=== PATIENT | female | born 1965 | race Caucasian/White ===

== ENCOUNTER → 2018-01-21 | Outpatient (CLI) | payer OTHER | LOC: FIMAGING 08:39 | PROVIDERS: ATTEND Obstetrics & Gynecology | DX: Z12.31 Encounter for screening mammogram for malignant neoplasm of breast (principal) ==

== ENCOUNTER 2018-11-30 09:01 | Inpatient (IN) | payer OTHER ==
[2018-11-30] MEDS ORDERED: NS 1,000 ML IV ONE ×2 (09:21→12:07)
[2018-11-30] MEDS ORDERED: ONDANSETRON 4 MG/2 ML VIAL IVP ONE (09:21)
[2018-11-30] MEDS ORDERED: fentaNYL 100 MCG/2 ML INJ IVP ONE (09:21)
--- NOTE | 2018-11-30 09:26 | EDPHY ---
H & P Time Seen by Provider: 11/30/18 09:15 HPI/ROS: CHIEF COMPLAINT: Abdominal pain HISTORY OF PRESENT ILLNESS: Patient started on Saturday with indigestion, she said she felt reasonably well and actually went skiing. That night she had nausea vomiting increasing pain in yesterday basically just lay around the house doing not much of anything with decreased oral intake. Today the pain is worse when she had a single episode of diarrhea. It is worse with standing. Not better with oral intake. Vomiting green bile. No fever or chills and no injury or trauma. REVIEW OF SYSTEMS: Eye: no change in vision ENT: no sore throat Cardiac: no chest pain or syncope Pulmonary: no cough or SOB Abdomen: HPI Musculoskeletal: no back pain Skin: no rash Neuro: no headache Constitutional: no fever : no urinary symptoms A comprehensive 10 point review of systems is otherwise negative aside from elements mentioned in the history of present illness. PAST MEDICAL HISTORY: Negative, no previous abdominal surgery Social history: Nonsmoker General Appearance: Alert and conversant, cooperative. Eyes: No scleral icterus. ENT, Mouth: Dry mucous membranes. Respiratory: Normal respiratory effort, breath sounds equal, lungs are clear to auscultation. Cardiovascular: Regular rate and rhythm. Gastrointestinal: Bilateral lower abdominal tenderness without rebound or guarding. Neurological: Alert, face symmetric, normal motor and sensory in extremities. Skin: Warm and dry, no rashes. Musculoskeletal: No peripheral edema. Psychiatric: Not agitated. Emergency Department course/MDM: Normal saline 1 L, Zofran 4 mg IV and fentanyl 50 mcg IV. Patient is postmenopausal, think ectopic or ovarian would be unlikely. Plan for i-STAT and then CT scanning to evaluate for diverticulitis or appendicitis or perforation. 1045: CT per Dr. Harp shows appendicitis with multiple appendicoliths, discussed with the patient and CT reviewed with her. Plan surgical consultation IV antibiotics and admission. Penicillin allergy per the patient was a rash when she was given penicillin in [place] at 5 years of age, but she has had ampicillin since without reaction. Smoking Status: Never smoked Constitutional: Initial Vital Signs Temperature (C) 37.2 C 11/30/18 09:04 Heart Rate 69 11/30/18 09:04 Respiratory Rate 16 11/30/18 09:04 Blood Pressure 115/71 11/30/18 09:04 O2 Sat (%) 99 11/30/18 09:04 O2 Delivery Mode Room Air Allergies/Adverse Reactions: Penicillins Allergy (Verified 11/30/18 09:04) Home Medications: Medication Instructions Recorded NK [No Known Home Meds] 11/30/18 Medical Decision Making - Diagnostics Imaging Results: Imaging Impressions Abdomen CT 11/30/18 10:05 Impression: CT findings for appendicitis with a markedly enlarged appendix and multiple appendicoliths. There is surrounding inflammatory change with the appendix contiguous with a small amount of free fluid in the pelvis, indicating it may have ruptured. No evidence for free intraperitoneal air. Results called and discussed with Shane Keene MD on November 30, 2018 at 10: 47 a.m. Imaging: Discussed imaging studies w/ call center analyst Radiologist Differential Diagnosis: Differential considered including but not limited to gastroenteritis, appendicitis, diverticulitis, bowel obstruction, ovarian problem. Consult/Admit Bed Type: [place] [id number] - Data Points Laboratory Results: Laboratory Results 11/30/18 09:31 11/30/18 09:31 11/30/18 11/30/18 11/30/18 10:15 10:02 09:41 WBC RBC Hgb POC Hgb 16.0 gm/dL gm/dL (12.6-16.3) Hct POC Hct 47 % % (38-47) MCV MCH MCHC RDW Plt Count MPV Neut % (Auto) Lymph % (Auto) [place] % (Auto) Eos % (Auto) Baso % (Auto) Nucleat RBC Rel Count Absolute Neuts (auto) Absolute Lymphs (auto) Absolute Monos (auto) Absolute Eos (auto) Absolute Basos (auto) Absolute Nucleated RBC Immature Gran % Immature Gran # POC Sodium 137 mEq/L mEq/L (135-145) Sodium POC Potassium 3.6 mEq/L mEq/L (3.3-5.0) Potassium POC Chloride 99 mEq/L mEq/L (97-110) Chloride Carbon Dioxide POC Total CO2 22 mEq/L mEq/L (22-31) Anion Gap POC BUN 20 mg/dL mg/dL (7-23) BUN Creatinine POC Creatinine 0.7 mg/dL mg/dL (0.6-1.0) Estimated GFR Glucose POC Glucose 122 mg/dL H mg/dL (70-100) Calcium Total Bilirubin Conjugated Bilirubin Unconjugated Bilirubin AST ALT Alkaline Phosphatase POC Troponin I 0.00 ng/mL ng/mL (0.00-0.08) Total Protein Albumin Lipase Beta HCG, Qual Urine Color YELLOW Urine Appearance HAZY Urine pH 5.0 (5.0-7.5) Ur Specific [place] 1.028 (1.002-1.030) Urine Protein 1+ H (NEGATIVE) Urine Ketones 2+ H (NEGATIVE) Urine Blood NEGATIVE (NEGATIVE) Urine Nitrate NEGATIVE (NEGATIVE) Urine Bilirubin NEGATIVE (NEGATIVE) Urine Urobilinogen NEGATIVE EU EU (0.2-1.0) Ur Leukocyte Esterase TRACE H (NEGATIVE) Urine RBC 1-3 /hpf /hpf (0-3) Urine WBC 5-10 /hpf H /hpf (0-3) Ur Epithelial Cells 1+ /lpf /lpf (NONE-1+) Urine Bacteria TRACE /hpf H /hpf (NONE SEEN) Urine Mucus 3+ /lpf H /lpf (NONE-1+) Urine Glucose NEGATIVE (NEGATIVE) 11/30/18 11/30/18 11/30/18 09:31 09:31 09:31 WBC 17.08 10^3/uL H 10^3/uL (3.80-9.50) RBC 4.66 10^6/uL 10^6/uL (4.18-5.33) Hgb 14.3 g/dL g/dL (12.6-16.3) POC Hgb Hct 42.0 % % (38.0-47.0) POC Hct MCV 90.1 fL fL (81.5-99.8) MCH 30.7 pg pg (27.9-34.1) MCHC 34.0 g/dL g/dL (32.4-36.7) RDW 12.1 % % (11.5-15.2) Plt Count 305 10^3/uL 10^3/uL (150-400) MPV 9.5 fL fL (8.7-11.7) Neut % (Auto) 88.5 % H % (39.3-74.2) Lymph % (Auto) 4.6 % L % (15.0-45.0) [place] % (Auto) 6.4 % % (4.5-13.0) Eos % (Auto) 0.0 % L % (0.6-7.6) Baso % (Auto) 0.1 % L % (0.3-1.7) Nucleat RBC Rel Count 0.0 % % (0.0-0.2) Absolute Neuts (auto) 15.12 10^3/uL H 10^3/uL (1.70-6.50) Absolute Lymphs (auto) 0.78 10^3/uL L 10^3/uL (1.00-3.00) Absolute Monos (auto) 1.09 10^3/uL H 10^3/uL (0.30-0.80) Absolute Eos (auto) 0.00 10^3/uL L 10^3/uL (0.03-0.40) Absolute Basos (auto) 0.02 10^3/uL 10^3/uL (0.02-0.10) Absolute Nucleated RBC 0.00 10^3/uL 10^3/uL (0-0.01) Immature Gran % 0.4 % % (0.0-1.1) Immature Gran # 0.07 10^3/uL 10^3/uL (0.00-0.10) POC Sodium Sodium 135 mEq/L mEq/L (135-145) POC Potassium Potassium 4.1 mEq/L mEq/L (3.5-5.2) POC Chloride Chloride 102 mEq/L mEq/L (97-110) Carbon Dioxide 24 mEq/l mEq/l (22-31) POC Total CO2 Anion Gap 9 mEq/L mEq/L (6-14) POC BUN BUN 20 mg/dL mg/dL (7-23) Creatinine 0.8 mg/dL mg/dL (0.6-1.0) POC Creatinine Estimated GFR > 60 Glucose 123 mg/dL H mg/dL (70-100) POC Glucose Calcium 9.9 mg/dL mg/dL (8.5-10.4) Total Bilirubin 2.0 mg/dL H mg/dL (0.1-1.4) Conjugated Bilirubin 0.2 mg/dL mg/dL (0.0-0.5) Unconjugated Bilirubin 1.8 mg/dL H mg/dL (0.0-1.1) AST 24 IU/L IU/L (14-46) ALT 26 IU/L IU/L (9-52) Alkaline Phosphatase 71 IU/L IU/L (38-126) POC Troponin I Total Protein 7.4 g/dL g/dL (6.3-8.2) Albumin 4.4 g/dL g/dL (3.5-5.0) Lipase 56 IU/L IU/L (23-300) Beta HCG, Qual NEGATIVE Urine Color Urine Appearance Urine pH Ur Specific [place] Urine Protein Urine Ketones Urine Blood Urine Nitrate Urine Bilirubin Urine Urobilinogen Ur Leukocyte Esterase Urine RBC Urine WBC Ur Epithelial Cells Urine Bacteria Urine Mucus Urine Glucose Medications Given: Discontinued Medications Fentanyl (Sublimaze) 50 mcg IVP EDNOW ONE Stop: 11/30/18 09:22 Last Admin: 11/30/18 09:44 Dose: 50 mcg Hydromorphone HCl (Dilaudid) 0.5 mg IVP EDNOW ONE Stop: 11/30/18 10:27 Last Admin: 11/30/18 10:36 Dose: 0.5 mg Hydromorphone HCl (Dilaudid) 0.5 mg IVP ONCE ONE Stop: 11/30/18 12:08 Last Admin: 11/30/18 12:14 Dose: 0.5 mg Sodium Chloride (Ns) 1,000 mls @ 0 mls/hr IV EDNOW ONE; Wide Open PRN Reason: Protocol Stop: 11/30/18 09:22 Last Admin: 11/30/18 09:40 Dose: 1,000 mls Ceftriaxone Sodium/Dextrose (Rocephin 1 Gm (Premix)) 50 mls @ 100 mls/hr IV EDNOW ONE PRN Reason: Protocol Stop: 11/30/18 11:20 Last Admin: 11/30/18 11:08 Dose: 50 mls Metronidazole/Sodium Chloride (Flagyl 500 Mg (Premix)) 100 mls @ 100 mls/hr IV EDNOW ONE PRN Reason: Protocol Stop: 11/30/18 11:50 Last Admin: 11/30/18 11:09 Dose: 100 mls Sodium Chloride (Ns) 1,000 mls @ 0 mls/hr IV EDNOW ONE; Wide Open PRN Reason: Protocol Stop: 11/30/18 12:08 Last Admin: 11/30/18 12:13 Dose: 1,000 mls Ondansetron HCl (Zofran) 4 mg IVP EDNOW ONE Stop: 11/30/18 09:22 Last Admin: 11/30/18 09:44 Dose: 4 mg Point of Care Test Results: Chemistry 11/30/18 11/30/18 10:02 09:41 POC Sodium 137 mEq/L mEq/L (135-145) POC Potassium 3.6 mEq/L mEq/L (3.3-5.0) POC Chloride 99 mEq/L mEq/L (97-110) POC Total CO2 22 mEq/L mEq/L (22-31) POC BUN 20 mg/dL mg/dL (7-23) POC Creatinine 0.7 mg/dL mg/dL (0.6-1.0) POC Glucose 122 mg/dL H mg/dL (70-100) POC Troponin I 0.00 ng/mL ng/mL (0.00-0.08) ISTAT H&H 11/30/18 10:02 POC Hgb 16.0 gm/dL gm/dL (12.6-16.3) POC Hct 47 % % (38-47) Departure - Departure Disposition: [facility] Inpatient Acute Clinical Impression: Acute appendicitis Qualifiers: Acute appendicitis type: with localized peritonitis Appendicitis gangrene presence: unspecified whether gangrene present Appendicitis perforation presence : unspecified whether perforation present Appendicitis abscess presence: unspecified whether abscess present Qualified Code(s): K35.30 - Acute appendicitis with localized peritonitis, without perforation or gangrene Condition: Good
[2018-11-30 09:44] LABS: PLATELET COUNT 305 10^3/uL (150-400)
[2018-11-30] MEDS ORDERED: IOHEXOL 300 mgI/ML (OMNIPAQUE) 150 ML BTL IV ONE (10:14)
[2018-11-30] MEDS ORDERED: HYDROmorphONE/DILAUDID 2 MG/ML INJ IVP ONE (10:26)
[2018-11-30] MEDS ORDERED: HYDROmorphONE/DILAUDID 1 MG/ML INJ IVP ONE (12:07)
--- NOTE | 2018-11-30 12:34 | PDGENHP ---
History and Physical - Chief Complaint abdominal pain - History of Present Illness 53yo F, has had pain since Saturday night. Attempted to tough it out, pain got worse. Pain has always been sharp, now in the RLQ, 8/10 in intensity. Patient has had fevers, no chills. Last real PO intake was Saturday evening. Recent UTI. No nausea or vomiting. 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 Review of Systems Review of Systems: ROS: 10pt was reviewed & negative except for what was stated in HPI & below Physical Exam Physical Exam: Temp Pulse Resp BP Pulse Ox 36.2 C 65 16 112/78 95 11/30/18 12:15 11/30/18 12:04 11/30/18 12:15 11/30/18 12:15 11/30/18 12:15 Constitutional: no apparent distress, appears nourished, not in pain Eyes: PERRL, anicteric sclera, EOMI Ears, Nose, Mouth, Throat: moist mucous membranes, hearing normal, ears appear normal, no oral mucosal ulcers Cardiovascular: regular rate and rhythym, no murmur, rub, or gallop, No edema Respiratory: no respiratory distress, no rales or rhonchi, clear to auscultation Gastrointestinal: normoactive bowel sounds, other (TTP in RLQ with rebound ) Genitourinary: no bladder fullness, no bladder tenderness Skin: warm, normal color, no rashes or abrasions, no fluctuance, no induration, No mottled Musculoskeletal: full muscle strength, no muscle tenderness, normal joint ROM, no joint effusions Psychiatric: interacting appropriately, not anxious, not encephalopathic, thought process linear Lymph, Heme, Immunologic: no cervical LAD, no supraclavicular LAD Lab Data & Imaging Review 11/30/18 09:31 11/30/18 09:31 WBC 17.08 10^3/uL (3.80-9.50) H 11/30/18 09: RBC 4.66 10^6/uL (4.18-5.33) 11/30/18 09: Hgb 14.3 g/dL (12.6-16.3) 11/30/18 09: POC Hgb 16.0 gm/dL (12.6-16.3) 11/30/18 10:02 Hct 42.0 % (38.0-47.0) 11/30/18 09: POC Hct 47 % (38-47) 11/30/18 10:02 MCV 90.1 fL (81.5-99.8) 11/30/18: MCH 30.7 pg (27.9-34.1) 11/30/18 09: MCHC 34.0 g/dL (32.4-36.7) 11/30/18: RDW 12.1 % (11.5-15.2) 11/30/18: Plt Count 305 10^3/uL (150-400) 11/30/18: MPV 9.5 fL (8.7-11.7) 11/30/18 09: Neut % (Auto) 88.5 % (39.3-74.2) H 11/30/18: Lymph % (Auto) 4.6 % (15.0-45.0) L 11/30/18: [place] % (Auto) 6.4 % (4.5-13.0) 11/30/18: Eos % (Auto) 0.0 % (0.6-7.6) L 11/30/18: Baso % (Auto) 0.1 % (0.3-1.7) L 11/30/18: Nucleat RBC Rel Count 0.0 % (0.0-0.2) 11/30/18: Absolute Neuts (auto) 15.12 10^3/uL (1.70-6.50) H 11/30/18 09: Absolute Lymphs (auto) 0.78 10^3/uL (1.00-3.00) L 11/30/18 09:31 Absolute Monos (auto) 1.09 10^3/uL (0.30-0.80) H 11/30/18 09:31 Absolute Eos (auto) 0.00 10^3/uL (0.03-0.40) L 11/30/18 09:31 Absolute Basos (auto) 0.02 10^3/uL (0.02-0.10) 11/30/18 09:31 Absolute Nucleated RBC 0.00 10^3/uL (0-0.01) 11/30/18 09:31 Immature Gran % 0.4 % (0.0-1.1) 11/30/18 09:31 Immature Gran # 0.07 10^3/uL (0.00-0.10) 11/30/18 09:31 POC Sodium 137 mEq/L (135-145) 11/30/18 10:02 Sodium 135 mEq/L (135-145) 11/30/18 09:31 POC Potassium 3.6 mEq/L (3.3-5.0) 11/30/18 10:02 Potassium 4.1 mEq/L (3.5-5.2) 11/30/18 09:31 POC Chloride 99 mEq/L (97-110) 11/30/18 10:02 Chloride 102 mEq/L (97-110) 11/30/18 09:31 Carbon Dioxide 24 mEq/l (22-31) 11/30/18 09:31 POC Total CO2 22 mEq/L (22-31) 11/30/18 10:02 Anion Gap 9 mEq/L (6-14) 11/30/18 09:31 POC BUN 20 mg/dL (7-23) 11/30/18 10:02 BUN 20 mg/dL (7-23) 11/30/18 09:31 Creatinine 0.8 mg/dL (0.6-1.0) 11/30/18 09:31 POC Creatinine 0.7 mg/dL (0.6-1.0) 11/30/18 10:02 Estimated GFR > 60 11/30/18 09:31 Glucose 123 mg/dL (70-100) H 11/30/18 09:31 POC Glucose 122 mg/dL (70-100) H 11/30/18 10:02 Calcium 9.9 mg/dL (8.5-10.4) 11/30/18 09:31 Total Bilirubin 2.0 mg/dL (0.1-1.4) H 11/30/18 09:31 Conjugated Bilirubin 0.2 mg/dL (0.0-0.5) 11/30/18 09:31 Unconjugated Bilirubin 1.8 mg/dL (0.0-1.1) H 11/30/18 09:31 AST 24 IU/L (14-46) 11/30/18 09:31 ALT 26 IU/L (9-52) 11/30/18 09:31 Alkaline Phosphatase 71 IU/L (38-126) 11/30/18 09:31 POC Troponin I 0.00 ng/mL (0.00-0.08) 11/30/18 09:41 Total Protein 7.4 g/dL (6.3-8.2) 11/30/18 09:31 Albumin 4.4 g/dL (3.5-5.0) 11/30/18 09:31 Lipase 56 IU/L (23-300) 11/30/18 09:31 Beta HCG, Qual NEGATIVE 11/30/18 09:31 Urine Color YELLOW 11/30/18 10:15 Urine Appearance HAZY 11/30/18 10:15 Urine pH 5.0 (5.0-7.5) 11/30/18 10:15 Ur Specific [place] 1.028 (1.002-1.030) 11/30/18 10:15 Urine Protein 1+ (NEGATIVE) H 11/30/18 10:15 Urine Ketones 2+ (NEGATIVE) H 11/30/18 10:15 Urine Blood NEGATIVE (NEGATIVE) 11/30/18 10:15 Urine Nitrate NEGATIVE (NEGATIVE) 11/30/18 10:15 Urine Bilirubin NEGATIVE (NEGATIVE) 11/30/18 10:15 Urine Urobilinogen NEGATIVE EU (0.2-1.0) 11/30/18 10:15 Ur Leukocyte Esterase TRACE (NEGATIVE) H 11/30/18 10:15 Urine RBC 1-3 /hpf (0-3) 11/30/18 10:15 Urine WBC 5-10 /hpf (0-3) H 11/30/18 10:15 Ur Epithelial Cells 1+ /lpf (NONE-1+) 11/30/18 10:15 Urine Bacteria TRACE /hpf (NONE SEEN) H 11/30/18 10:15 Urine Mucus 3+ /lpf (NONE-1+) H 11/30/18 10:15 Urine Glucose NEGATIVE (NEGATIVE) 11/30/18 10:15 Visualized and Interpreted imaging results: Yes Interpretation: CT: acute appendicitis, multiple fecaliths, some fluid in pelvis Assessment & Plan Assessment: Acute appendicitis (Acute) Plan: Acute appendicitis - to OR for lap appy, poss open - RBA discussed -
[2018-11-30] MEDS ORDERED: EPINEPHrine 1 MG/ML INJ ONE (13:52)
[2018-11-30] MEDS ORDERED: BUPIVACAINE 0.25% 30 ML SDV ONE (13:52)
[2018-11-30] MEDS ORDERED: MIDAZOLAM 2 MG/2 ML VIAL ONE (13:59)
[2018-11-30] MEDS ORDERED: fentaNYL 100 MCG/2 ML INJ ONE (14:02)
[2018-11-30] MEDS ORDERED: PROPOFOL/EMULSION 500 MG/50 ML BOTTLE IV ONE (14:02)
[2018-11-30] MEDS ORDERED: PHENYLEPHRINE HCL 100 MCG/ML SYR ONE (14:15)
[2018-11-30] MEDS ORDERED: PHENYLEPHRINE HCL 100 MCG/ML SYR IVP PRN (14:29)
[2018-11-30] MEDS ORDERED: LABETALOL HCL 5 MG/ML 20 ML MDV IVP PRN (14:29)
[2018-11-30] MEDS ORDERED: NALOXONE HCL 0.4 MG/ML INJ IVP PRN (14:29)
[2018-11-30] MEDS ORDERED: PROMETHAZINE HCL 25 MG/ML INJ IVP PRN (14:29)
[2018-11-30] MEDS ORDERED: LR 500 ML IV PRN (14:29)
--- NOTE | 2018-11-30 14:29 | PDANEPAE ---
ANE History of Present Illness 53 year old healthy female for ashwinrichi NAVARRO Past Medical History - Cardiovascular History Hx Hypertension: No Hx Arrhythmias: No Hx Chest Pain: No Hx Coronary Artery / Peripheral Vascular Disease: No Hx CHF / Valvular Disease: No Hx Palpitations: No - Pulmonary History Hx COPD: No Hx Asthma/Reactive Airway Disease: No Hx Recent Upper Respiratory Infection: No Hx Oxygen in Use at Home: No Hx Sleep Apnea: No Sleep Apnea Screening Result - Last Documented: Negative - Endocrine History Hx Diabetes: No - Chronic Pain History Chronic Pain: No ANE Review of Systems Review of systems is: negative Review of Systems: ANE Patient History - Allergies Allergies/Adverse Reactions: Penicillins Allergy (Verified 11/30/18 09:04) - Home Medications Home Medications: NK [No Known Home Meds] 11/30/18 [Last Taken Unknown] - NPO status NPO Since - Liquids (Date): 11/30/18 NPO Since - Liquids (Time): 07:00 NPO Since - Solids (Date): 11/28/18 NPO Since - Solids (Time): 18:00 - Smoking Hx Smoking Status: Never smoked ANE Labs/Vital Signs - Labs Result Diagrams: 11/30/18 09:31 11/30/18 09:31 - Vital Signs Blood Pressure: 87/68 Heart Rate: 64 Respiratory Rate: 16 O2 Sat (%): 94 Height: 167.64 cm Weight: 54.431 kg ANE Physical Exam - Airway Neck exam: FROM Mallampati Score: Class 1 Mouth exam: normal dental/mouth exam - Pulmonary Pulmonary: no respiratory distress - Cardiovascular Cardiovascular: regular rate and rhythym - ASA Status ASA Status: I, E ANE Anesthesia Plan Anesthesia Plan: general endotracheal anesthesia
[2018-11-30] MEDS ORDERED: MIDAZOLAM 2 MG/2 ML VIAL IVP ONE (14:52)
[2018-11-30] MEDS ORDERED: SUGAMMADEX SODIUM 200 MG/2 ML VIAL IVP ONE (14:54)
[2018-11-30] MEDS ORDERED: ACETAMINOPHEN 325 MG TAB PO PRN (15:06)
[2018-11-30] MEDS ORDERED: HYDROmorphONE/DILAUDID 1 MG/ML INJ IVP PRN (15:06)
[2018-11-30] MEDS ORDERED: ONDANSETRON 4 MG/2 ML VIAL IVP PRN (15:06)
--- NOTE | 2018-11-30 15:06 | POSTOPPROG ---
Post Op Note Date of Operation: 11/30/18 Surgeon: Jeovanny Soto Anesthesiologist: Sean Anesthesia: GET(General Endotracheal) Pre-op Diagnosis: appendicitis Post-op Diagnosis: perforated appendicitis Procedure: laparoscopic appendectomy, washout Findings: perforated, fecaliths spilled and retrieved Inf/Abcess present in the surg proc area at time of surgery?: Yes Depth: Organ Space EBL: Minimal Total fluids administered: 2L NS washout Specimen(s): appendix peritoneal fluid for culture
--- NOTE | 2018-11-30 15:12 | POSTANESTH ---
Post Anesthetic Evaluation Cardiovascular Status: Normal, Stable Respiratory Status: Normal, Stable Level of Consciousness/Mental Status: Mildly Sleepy, Arousable Pain Control: Adequate, Prn Tx Ordered Nausea/Vomiting Control: Adequate, Prn Tx Ordered Complications Possibly Related to Anesthesia: None Noted
--- NOTE | 2018-11-30 15:38 | PDMN ---
Medical Necessity Medical necessity: MCG: S185 appendectomy, with abscess or peritonitis by Lap: 2 days: abd pain since Fri. althea. worsening CT shows acute appendicitis, multiple fecaliths, some fluid in pelvis OP: Lap appy, with washout for perforated appy- , fecaliiths spilled and retrieved-
[2018-11-30] MEDS: D5W 1/2 NS W/ 20 KCl/L 1,000 ML IV SCH (16:19)
[2018-11-30] MEDS: oxyCODONE IR 5 MG TAB PO PRN (18:27)
--- NOTE | 2018-11-30 21:14 | GOP ---
[f rep st] OPERATIVE REPORT DATE OF OPERATION: 11/30/2018 SURGEON: Jeovanny Soto MD FEED HOUSE SUPERVISOR: None. ANESTHESIA: General endotracheal. ANESTHESIOLOGIST: Daysi Estrada MD PREOPERATIVE DIAGNOSIS: Appendicitis. POSTOPERATIVE DIAGNOSIS: Perforated appendicitis with peritonitis PROCEDURE PERFORMED: Laparoscopic appendectomy with abdominal washout. FINDINGS: Perforated appendix with fecaliths identified on CT scan had spilled and were successfully retrieved. Evidence of peritonitis apparent. Abdomen successfully washed out with 2 L of sterile saline. SPECIMENS: 1. Appendix. 1. Peritoneal fluid for culture. 2. ESTIMATED BLOOD LOSS: 10 cc. DESCRIPTION OF PROCEDURE: The patient was greeted in the preoperative suite. Once again, risks, benefits, and alternatives were discussed. Consent was signed. She was then brought back to the operative suite, placed on the OR table in supine position. After all anesthesia machines including SCDs were on and functioning, [employer] time-out was performed. After successful induction of general anesthesia, the patient's abdomen was prepped and draped in typical sterile fashion. I commenced the procedure by making an infraumbilical cutdown through which the Veress needle was passed. I achieved pneumoperitoneum to 15 mmHg, which was well tolerated by the patient. I then inserted a 12 mm Visiport through this site under direct visualization. Once successfully in the abdomen, I placed 2 additional 5 mm trocars, 1 in the suprapubic, 1 in the left lower quadrant. I had traced the taeniae inferiorly and identified the appendix tingling into the patient's pelvis. There was purulent fluid surrounding it, as well as a very visible perforation in the mid proximal portion of the appendix spilling the fecaliths into the patient's abdomen. I successfully first retrieved the fecaliths. I did identify that the base of the appendix at the cecum appeared healthy. I successfully first divided the mesoappendix using the LigaSure device and skeletonized the appendix completely. I then brought in a single fire Endo-JULITA blue load stapler and successfully amputated the remainder of the appendix off the cecum, noting a clean and healthy staple line. The specimen was then placed in the EndoCatch bag and removed. Sample of the purulent fluid from the patient's pelvis was sent for culture. I then irrigated the patient's pelvis and right lower quadrant. I found no other fecaliths or any other apparent debris, and clear effluent was noted in the suction canister. Local anesthesia was then infiltrated into the port sites. The omentum was draped over my staple line which again was noted to be intact and hemostatic I evacuated pneumoperitoneum. I closed my infraumbilical port site with a 0 Vicryl stitch noting excellent fascial reapproximation. Skin was then closed with Monocryl. Dermabond was placed. The patient was then extubated in the operative suite and taken to the PACU in satisfactory condition. COUNTS: All counts were reported as correct x2. /[id number]/MODL MTDD
[2018-11-30] MEDS: IBUPROFEN 600 MG TAB PO SCH (21:43)
[2018-12-01] MEDS: D5W 1/2 NS W/ 20 KCl/L 1,000 ML IV SCH (03:33)
[2018-12-01] MEDS: IBUPROFEN 600 MG TAB PO SCH ×2 (06:02→13:45)
[2018-12-01] MEDS: oxyCODONE IR 5 MG TAB PO PRN ×2 (06:38→13:44)
[2018-12-01 16:09] VITALS: BP 89/58
== END 2018-12-01 17:31 | disposition home or self-care (01) | DRG 340 ==
LOC: F3N 12:59 → OBSVTOIN 15:30
PROVIDERS: ADMIT Surgery; ATTEND Surgery
PROC: 0DTJ4ZZ Resection of Appendix, Percutaneous Endoscopic Approach (ICD-10-PCS; principal; 2018-11-30 14:30)
DX: K35.33 Acute appendicitis with perforation, localized peritonitis, and gangrene, with abscess (principal)
CPT/HCPCS: 82435-PO; 82565-PO; 82947-PO; 84132-PO; 84295-PO; 84484-ER; 84520-PO; 85014-ER; 96365; J0171; J0696; J1170; J2250; J2270; J2370; J2405; J2704; J3010; Q9967

== ENCOUNTER → 2019-01-21 | Outpatient (CLI) | payer OTHER | LOC: FIMAGING 08:37 | PROVIDERS: ATTEND Obstetrics & Gynecology | DX: Z12.31 Encounter for screening mammogram for malignant neoplasm of breast (principal) ==